=== PATIENT | female | born 1995 | race African-American/Black ===

== ENCOUNTER 2017-09-24 17:47 | Emergency (ER) | payer OTHER ==
[2017-09-24] MEDS ORDERED: ATIVAN ONE (18:30)
[2017-09-24] MEDS ORDERED: ATIVAN IM ONE (18:34)
[2017-09-24 18:37] LABS: Basophils % (Auto) 0.5 % (0.0-1.8); Hematocrit 42.3 % (30.3-42.9); Hemoglobin 14.2 gm/dl (10.1-14.3); Lymphocytes # (Auto) 2.7 K/mm3 (1.2-5.4); Lymphocytes % (Auto) 27.3 % (13.4-35.0); Mean Corpuscular HGB Conc 34 % (30-34); Mean Corpuscular Hemoglobin 33 pg (28-32); Mean Corpuscular Volume 98 fl (79-97); Monocytes # (Auto) 0.9 K/mm3 (0.0-0.8); Monocytes % (Auto) 9.4 % (0.0-7.3); Platelet Count 295 K/mm3 (140-440); Red Blood Count 4.33 M/mm3 (3.65-5.03); Red Cell Distribution Width 11.9 % (13.2-15.2)
[2017-09-24 18:54] LABS: BUN/Creatinine Ratio 14; Blood Urea Nitrogen 11 mg/dL (7-17); Hemolysis Index 17
[2017-09-24 18:57] LABS: Bacteria,Urine 2+ /HPF (Negative); Bilirubin,Urine NEG (Negative); Blood,Urine NEG (Negative); Color,Urine Yellow (Yellow); Hyaline Casts,Urine 16 /LPF; Mucus,Urine 3+ /HPF; Nitrite,Urine NEG (Negative); Protein,Urine <15 mg/dL mg/dL (Negative); Urobilinogen,Urine < 2.0 mg/dL (<2.0)
[2017-09-24 19:01] LABS: Amphetamine Screen,Urine PRESUMPTIVE NEGATIVE; Cannabinoid Screen,Urine PRESUMPTIVE NEGATIVE; Cocaine Screen,Urine PRESUMPTIVE NEGATIVE; Methadone Screen,Urine PRESUMPTIVE NEGATIVE; Opiate Screen,Urine PRESUMPTIVE NEGATIVE
[2017-09-24 19:13] LABS: Benzodiazepines Screen,Urine PRESUMPTIVE POSITIVE
--- NOTE | 2017-09-24 19:25 | Emergency Department Report ---
ED General Adult HPI - General Chief complaint: Psych Stated complaint: MH/PSYCH EVAL Time Seen by Provider: 09/24/17 19:24 Source: patient, police, RN notes reviewed Mode of arrival: Ambulatory Limitations: No Limitations - History of Present Illness Initial comments: Altered Mental Status; 1013 -: Sudden Time: 21:27 Improves with: none Worsens with: none Associated Symptoms: confusion - Related Data Allergies Allergy/AdvReac Type Severity Reaction Status Date / Time No Known Allergies Allergy Unverified 03/15/16 17:33 ED Review of Systems ROS: Stated complaint: MH/PSYCH EVAL Other details as noted in HPI Comment: All other systems reviewed and negative Constitutional: denies: chills, fever Eyes: denies: eye pain, eye discharge, vision change ENT: denies: ear pain, throat pain Respiratory: denies: cough, shortness of breath, wheezing Cardiovascular: denies: chest pain, palpitations Endocrine: no symptoms reported Gastrointestinal: denies: abdominal pain, nausea, diarrhea Genitourinary: denies: urgency, dysuria, discharge Musculoskeletal: denies: back pain, joint swelling, arthralgia Skin: denies: rash, lesions Neurological: denies: headache, weakness, paresthesias Psychiatric: denies: anxiety, depression Hematological/Lymphatic: denies: easy bleeding, easy bruising ED Past Medical Hx - Past Medical History Previous Medical History?: Yes Additional medical history: hypothyroidism - Surgical History Additional Surgical History: unable to assess - Family History Family history: no significant - Social History Smoking Status: Unknown if ever smoked Substance Use Type: Alcohol ED Physical Exam - General Limitations: No Limitations, Altered Mental Status General appearance: alert, in no apparent distress - Head Head exam: Present: atraumatic, normocephalic - Eye Eye exam: Present: normal appearance - ENT ENT exam: Present: mucous membranes moist - Neck Neck exam: Present: normal inspection - Respiratory Respiratory exam: Present: normal lung sounds bilaterally. Absent: respiratory distress - Cardiovascular Cardiovascular Exam: Present: regular rate, normal rhythm. Absent: systolic murmur, diastolic murmur, rubs, gallop - GI/Abdominal GI/Abdominal exam: Present: soft, normal bowel sounds - Extremities Exam Extremities exam: Present: normal inspection - Back Exam Back exam: Present: normal inspection - Neurological Exam Neurological exam: Present: alert, oriented X3 - Psychiatric Psychiatric exam: Present: normal affect, normal mood - Skin Skin exam: Present: warm, dry, intact, normal color. Absent: rash ED Course Vital Signs 09/24/17 09/24/17 09/24/17 18:16 19:10 20:22 Temperature 98.4 F 99 F Pulse Rate 130 H 124 H Respiratory 20 20 18 Rate Blood Pressure 148/102 Blood Pressure 152/100 [Left] O2 Sat by Pulse 99 99 97 Oximetry - Reevaluation(s) Reevaluation #1: 09/24/17 22:12 Patient doing well. She states that her surgeon that performed her breast augmentation gave her a Xanax prescription for anxiety. She stated this after I inquired about the positive drug screen of benzos. ED Medical Decision Making - Lab Data Result diagrams: 09/24/17 18:28 09/24/17 18:28 Critical Care Time: No Critical care attestation.: If time is entered above; I have spent that time in minutes in the direct care of this critically ill patient, excluding procedure time. ED Disposition Disposition: [id number]/TX-65 PSY HOSP/PSY UNIT Is pt being admited?: No Does the pt Need Aspirin: No Condition: Stable Referrals: PRIMARY CARE, [Primary Care Provider] - 3-5 Days
[2017-09-25] MEDS ORDERED: NACL 0.9% 1000 ML 1,000 ML IV ONE (09:01)
[2017-09-25] MEDS ORDERED: ATIVAN IV ONE (09:01)
[2017-09-25 10:02] LABS: Free T4 (Free Thyroxine) 1.69 ng/dL (0.76-1.46)
[2017-09-25 11:41] LABS: BUN/Creatinine Ratio 15; Blood Urea Nitrogen 12 mg/dL (7-17); Calcium 9.8 mg/dL (8.4-10.2); Hemolysis Index 17
[2017-09-25] MEDS ORDERED: K-DUR PO ONE (11:55)
--- NOTE | 2017-09-25 11:59 | Emergency Department Report ---
Blank Doc - Documentation Documentation: Nurse approach me morning to medicate the patient due to anxious behavior. Patient was placed in seclusion over the night. Documented heart rate during ED stay has been in the 120s to 130s. I requested repeat vital signs this a.m. the heart rate reduced to 100. IV line placed. 1 L normal saline initiated and 1 mg of IV Ativan. Thyroid function tests also performed since patient has history of hypothyroidism but also to rule out alternative cause of tachycardia. Heart rate improved after Ativan and IV fluids. Mental status also improved and patient is now calm and relaxed. EKG performed and reveals sinus rhythm rate 86 with QRS axis of 62 and QRS duration is [address] elevation DC or T-wave abnormalities. Patient's initial BMP showed a CO2 of 15 and anion gap of 32. I ordered ABG to rule out acid base disturbance. ABG was unremarkable. BMP repeated to ensure resolution of abnormal CO2 and anion gap. Also tests ordered and is negative. Repeat BMP does show improvement his CO2 and anion gap. Potassium was 3.2 so patient received by mouth potassium 40 mg. I also ordered Mental health consult.
[2017-09-26] MEDS ORDERED: TYLENOL PO ONE (05:01)
[2017-09-26] MEDS ORDERED: XANAX PO ONE (08:56)
[2017-09-26] MEDS ORDERED: ATIVAN IM ONE (08:57)
[2017-09-26] MEDS ORDERED: BENADRYL ONE (09:09)
[2017-09-26] MEDS ORDERED: BENADRYL IM ONE (09:15)
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
[2017-09-26] MEDS ORDERED: HALDOL IM PRN (19:51)
[2017-09-26] MEDS ORDERED: ATIVAN IV PRN (19:51)
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
[2017-09-27] MEDS: RisperDAL PO SCH (22:09)
[2017-09-28] MEDS: RisperDAL PO SCH (22:41)
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
[2017-09-29] MEDS: RisperDAL PO SCH (22:49)
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
[2017-09-30 15:36] VITALS: BP 112/78
--- NOTE | 2017-09-30 18:51 | Event Note ---
Date: 09/30/17 Patient has been followed by industrial psychology teacher and 1013 has been rescinded as she has become stable on meds. She is neither suicidal or homocidal and is suitable for discharge. She has been given further instructions and management by Keenan Hutchinson NP.
[2017-09-30] MEDS: RisperDAL PO SCH (20:23)
== END 2017-09-30 20:27 | disposition home or self-care (01) ==
LOC: ED 17:47 → EEVIPCON 17:47 → ED 09-30 20:27
DX: R41.82 Altered mental status, unspecified (principal); R41.0 Disorientation, unspecified; E03.9 Hypothyroidism, unspecified
CPT/HCPCS: 36415; 80048; 80307; 81001; 82803; 84439; 84443; 84703; 85025; 96361; 96372; 96374; 99284; G0480; J1200; J1630; J2060; J7030; 80320